=== PATIENT | male | born 1970 | race African-American/Black ===

== ENCOUNTER 2017-08-12 17:22 | Emergency (ER) | payer OTHER ==
[2017-08-12 17:42] VITALS: BP 118/72; PULSE 83; TEMP 98.6; BMI 36.6
--- NOTE | 2017-08-12 18:28 | PDOC ---
History of Present Illness - General Chief Complaint: Laceration Stated Complaint: LACERATION Time Seen by Provider: 08/12/17 18:13 History Source: Patient Exam Limitations: No Limitations - History of Present Illness Initial Comments: 08/12/17 18:22 left 5th finger crush injury on a heater at work today. Pt is UTD with tetanus. 08/16/17 08:32 Past History - Past Medical History Allergies/Adverse Reactions: Allergies Allergy/AdvReac Type Severity Reaction Status Date / Time No Known Allergies Allergy Verified 08/12/17 17:39 Home Medications: Ambulatory Orders NK [No Known Home Medication] 07/17/16 Other medical history: denies - Surgical History Abdominal Surgery: Yes (HERNIA) - Immunization History Immunization Up to Date: Yes - Suicide/Smoking/Psychosocial Hx Smoking History: Never smoked Number of Cigarettes Smoked Daily: 3 Information on smoking cessation initiated: No Hx Alcohol Use: No Drug/Substance Use Hx: No Substance Use Type: Marijuana Review of Systems - Review of Systems Able to Perform ROS?: Yes Is the patient limited Lao proficient: No Constitutional: No: Symptoms Reported HEENTM: No: Symptoms Reported Respiratory: No: Symptoms reported Cardiac (ROS): No: Symptoms Reported ABD/GI: No: Symptoms Reported : No: Symptoms Reported Musculoskeletal: Yes: See HPI Integumentary: Yes: See HPI *Physical Exam - Vital Signs Last Vital Signs Temp Pulse Resp BP Pulse Ox 98.6 F 83 18 118/72 98 08/12/17 17:39 08/12/17 17:39 08/12/17 17:39 08/12/17 17:39 08/12/17 17:39 - Physical Exam General Appearance: Yes: Nourished, Appropriately Dressed HEENT: positive: EOMI, JULIANN Musculoskeletal: positive: Normal Inspection Extremity: positive: Normal Capillary Refill, Normal Inspection, Normal Range of Motion Integumentary: positive: Normal Color, Dry, Warm, Other (left 5th digit with avulsed skin at the tip of the 5th digit, nv intact FROM mild oozing ) Neurologic: positive: Fully Oriented, Alert, Normal Mood/Affect, Normal Response , Motor Strength 5/5 Procedures - Laceration/Wound Repair Left Distal 5th digit Wound Length: to 2.5 cm Wound Explored: clean Wound's Depth, Shape: contused tissue Irrigated w/ Saline: Yes Betadine Prep: Yes Progress: 08/12/17 18:25 bacitracin and bulky dressing placed ED Treatment Course - RADIOLOGY Radiology Studies Ordered: Category Date Time Status FINGER(S) LEFT [RAD] Stat Radiology 08/12/17 18:22 Ordered Medical Decision Making - Medical Decision Making 08/12/17 18:26 cc: crush injury to 5th digit at work avulsed skin to distal tip of finger nail is intact FROM nv intact will xray to r/o fracture wound care done , cleaned with peroxide and bacitracin placed with gauze placed xray is negative for fracture wound care dc inst explained to patient, all questions asked and answered. pt agrees with plan of care. 08/16/17 08:35 *DC/Admit/Observation/Transfer Diagnosis at time of Disposition: Injury, finger Qualifiers: Encounter type: initial encounter Laterality: left Qualified Code(s): S69.92XA - Unspecified injury of left wrist, hand and finger(s), initial encounter - Discharge Dispostion Disposition: HOME Condition at time of disposition: Good - Referrals Referrals: Beatrice Smith MD [Primary Care Provider] - Alex Kaur MD [Staff Physician] - - Patient Instructions Additional Instructions: keep the wound clean and dry bacitracin once a day and keep covered with bandage while at work take motrin as needed for pain follow with for follow up if any worsening symptoms
== END 2017-08-12 18:35 | disposition home or self-care (01) ==
LOC: JERFT 17:22
DX: S61.217A Laceration without foreign body of left little finger without damage to nail, initial encounter (principal); X58.XXXA Exposure to other specified factors, initial encounter; Y93.89 Activity, other specified; Y92.89 Other specified places as the place of occurrence of the external cause; Y99.0 Civilian activity done for income or pay
CPT/HCPCS: 73140-TC-LT; 99281-25